=== PATIENT | male | born 1970 | race Two or more races ===

== ENCOUNTER → 2025-02-20 | Emergency (ER) | payer OTHER ==
[~2025-02-20] VITALS: Ht 175.3 cm; Wt 85.7 kg
[~2025-02-20] MED LIST: 0.9 % SODIUM CHLORIDE 500 ML IV ONE; GLIPIZIDE ER2.5 MG PO; INSULIN LISPRO 1,000 UNIT/10 ML UNITS SUBCUTANEO ONE; JENTADUETO 2.51 EAC2
[2025-02-20 09:26] VITALS: BP 124/78; O2SAT 98
[2025-02-20 10:42] LABS: BASO % 0.6 % (0.1-1.2); EOS # 0.31 (0.04-0.54); EOS % 4.8 % (0.7-7.0); LYMPH # 1.46 (1.18-3.74); LYMPH % 22.5 % (19.3-53.1); MEAN PLATELET VOLUME 9.60 fl (9.4-12.4); MONO # 0.30 (0.24-0.82); MONO % 4.6 % (4.7-12.5); NEUT # 4.32 (1.56-6.13); NEUT % 66.7 % (34.0-71.1); RED CELL DISTRIBUTION WIDTH 13.0 % (11.6-14.4)
[2025-02-20 11:40] LABS: ALT/SGPT 60.0 U/L (12-78); AST/SGOT 24.0 U/L (15-37); BILIRUBIN TOTAL 0.64 mg/dL (0.3-1.2); BUN CREA RATIO 13.0 (7.0-25.0); CREATININE SERUM 1.2 mg/dL (0.70-1.30); GFR 62.63; GLOBULINA 3.1 G/DL (2.4-3.5); OSMOLALITY SERUM 292.0 MOSM/KG (275-295)
[2025-02-20 12:02] LABS: GLUCOSE FASTING 336.0 mg/dL (65-100)
== END | disposition home or self-care (01) ==
LOC: ER 09:15
PROVIDERS: General Practice
DX: E11.9 Type 2 diabetes mellitus without complications (principal); Z79.84 Long term (current) use of oral hypoglycemic drugs